=== PATIENT | male | born 1945 | race Caucasian/White ===

== ENCOUNTER 2023-03-10 10:45 | Inpatient (IN) | payer MEDICARE, OTHER ==
[~2023-03-10] VITALS: Ht 170.2 cm; Wt 68.0 kg
[~2023-03-10 10:45] MED LIST: ATOR40TA71 PO; FERR28TA PO; LACT1CAP26 PO; LISI5TAB22 PO; METF500T3 PO; RIVA20TA PO; SOTA80TA46 PO
[2023-03-10 11:09] LABS: BASOPHILS # (AUTO) 0.1 X10'3 (0-0.2); EOSINOPHILS % (AUTO) 8.9 % (0-6); HEMATOCRIT 24.9 % (42.0-52.0); HEMOGLOBIN 8.1 g/dl (14.0-17.9); LYMPHOCYTES # (AUTO) 1.6 X10'3 (1.1-4.8); LYMPHOCYTES % (AUTO) 13.8 % (21-51); MEAN CORPUSCULAR HEMOGLOBIN 27.1 PG (27.0-31.0); MEAN CORPUSCULAR HGB CONC 32.4 g/dL (33.0-36.5); MEAN CORPUSCULAR VOLUME 83.5 FL (78-98); MEAN PLATELET VOLUME 6.6 FL (7.4-10.4); MONOCYTES # (AUTO) 0.7 X10'3 (0-0.9); MONOCYTES % (AUTO) 6.3 % (2-12); PLATELET COUNT 374 X10'3 (140-440); RED BLOOD COUNT 2.98 X10'6 (4.70-6.10); WHITE BLOOD COUNT 11.4 X10'3 (4.5-11.0)
[2023-03-10 11:23] LABS: ALANINE AMINOTRANSFERASE 22 U/L (12-78); ALBUMIN 3.3 G/DL (3.4-5.0); ALBUMIN/GLOBULIN RATIO 1.1 (1.1-1.5); ALKALINE PHOSPHATASE 47 IU/L (46-116); ANION GAP 8 (8-16); ASPARTATE AMINO TRANSFERASE 21 U/L (10-37); BILIRUBIN,TOTAL 0.3 MG/DL (0.1-1.0); BLOOD UREA NITROGEN 22 MG/DL (7-18); BUN/CREATININE RATIO 19.5 (10.0-20.0); CALCIUM 8.4 MG/DL (8.5-10.1); CHLORIDE 106 MMOL/L (99-107); CREATININE 1.13 MG/DL (0.60-1.10); GLUCOSE 154 MG/DL (70-104); LIPASE 199 U/L (73-393); POTASSIUM 4.4 MMOL/L (3.5-5.1); SODIUM 137 MMOL/L (135-145); TOTAL CARBON DIOXIDE 22.8 MMOL/L (24-32); TOTAL PROTEIN 6.3 G/DL (6.4-8.2); eGFR 63 ML/MIN
[2023-03-10] MEDS ORDERED: pantoprazole 40mg IV 80 MG in normal saline 100ml IV soln 100 ML IV ONE (11:25)
[2023-03-10] MEDS ORDERED: HYDROcodone/acetaminophen 10/325mg tab PO PRN (11:45)
[2023-03-10] MEDS ORDERED: HYDROmorphone/PF 0.2 MG/ML SYRINGE IV PRN (11:45)
[2023-03-10] MEDS ORDERED: acetaminophen 325mg tablet PO PRN ×2 (11:45)
[2023-03-10] MEDS ORDERED: mag hydrox/Alum hydrox/simeth 30ml oral suspension PO PRN (11:45)
[2023-03-10] MEDS ORDERED: potassium Cl 20 mEq SR tablet PO PRN ×2 (11:45)
[2023-03-10] MEDS ORDERED: ondansetron/PF 4mg/2ml inj IV PRN (11:45)
[2023-03-10] MEDS ORDERED: magnesium 2GM in 50ml NS 50 ML IV PRN (11:45)
[2023-03-10] MEDS ORDERED: magnesium 4gm in 100ml NS 100 ML IV PRN (11:45)
[2023-03-10] MEDS ORDERED: potassium Cl 40MEQ/1/2NS 520ml 520 ML IV PRN (11:45)
[2023-03-10] MEDS ORDERED: magnesium hydroxide 30ml (MOM) UD suspension PO PRN (11:45)
[2023-03-10] MEDS ORDERED: HYDROcodone/acetaminophen 5mg/325mg tablet PO PRN (11:45)
[2023-03-10] MEDS ORDERED: ondansetron 4mg rapidly disintigrating tab PO PRN (11:45)
[2023-03-10] MEDS ORDERED: magnesium Cl slow-release 64mg tablet PO PRN (11:45)
[2023-03-10] MEDS ORDERED: HYDROmorphone inj. 0.5 MG/0.5 ML DISP.SYRIN IV PRN (11:45)
[2023-03-10] MEDS ORDERED: acetaminophen 650mg rectal suppository RC PRN (11:45)
[2023-03-10 12:14] LABS: CLARITY,URINE CLEAR (Clear); COLOR,URINE YELLOW (Yellow); GLUCOSE, URINE NEGATIVE (Neg); KETONES,URINE NEGATIVE (Neg); LEUKOCYTE ESTERASE ,URINE NEGATIVE (Neg); NITRITES, URINE NEGATIVE (Neg); OCCULT BLOOD,URINE NEGATIVE (Neg); PH,URINE 5.5 (4.8-8.0); PROTEIN,URINE NEGATIVE (Neg); UROBILINOGEN,URINE 0.2 E.U/dL (0.2-1.0)
[2023-03-10 12:16] LABS: UA COLLECTION TYPE CLN CATCH MIDSTREAM
[2023-03-10] MEDS ORDERED: OMEP20TA43 PO (12:40)
[2023-03-10] MEDS ORDERED: MULT-1085 PO (12:40)
[2023-03-10 12:44] LABS: OCCULT BLOOD STOOL POSITIVE (Neg)
[2023-03-10] MEDS: normal saline 1000ml 1,000 ML IV SCH ×2 (13:01→21:45)
[2023-03-10] MEDS ORDERED: MESSAGE TO PHARMACY PO ONE (14:40)
[2023-03-10] MEDS ORDERED: glucagon, human recombinant 1mg kit SUBCUT PRN (14:40)
[2023-03-10] MEDS ORDERED: DEXTROSE 15 GM of carb/4 tabs (each vial/BOTTLE has 4 tablets) PO PRN ×2 (14:40)
[2023-03-10] MEDS ORDERED: dextrose 50%-water 50ml dispensing syringe IV PRN ×2 (14:40)
[2023-03-10] MEDS ORDERED: insulin Lispro (HumaLOG) vial - multi-dose SQ SCH (14:40)
[2023-03-10 15:00] VITALS: BP 114/67
[2023-03-10 15:04] LABS: APTT 26 SECONDS (22-32)
[2023-03-10] MEDS: pantoprazole 40MG/NS 100ML BAG 100 ML IV SCH ×2 (16:37→20:47)
[2023-03-10 18:57] VITALS: BP 106/60
[2023-03-10] MEDS: sotalol HCl 40mg (1/2 tablet) PO SCH (20:00)
[2023-03-10] MEDS: K and/or MAG REPLACEMENT MC SCH (20:00)
[2023-03-10 20:57] VITALS: BP 107/64
[2023-03-10] MEDS: insulin glargine (Lantus) pen - multi-dose SQ SCH (21:00)
[2023-03-10] MEDS ORDERED: temazepam 15mg capsule PO PRN (21:00)
[2023-03-10 23:25] VITALS: BP 96/50
[2023-03-11] VITALS (11 sets, daily range): BP systolic 94–116; BP diastolic 45–72
[2023-03-11] MEDS: pantoprazole 40MG/NS 100ML BAG 100 ML IV SCH ×5 (01:37→22:12)
--- NOTE | 2023-03-11 06:42 | NUR ---
Problems reprioritized. Patient report given, questions answered & plan of care reviewed with OSMAR Mera.
[2023-03-11] MEDS: K and/or MAG REPLACEMENT MC SCH ×2 (08:00→20:00)
[2023-03-11] MEDS: sotalol HCl 40mg (1/2 tablet) PO SCH ×2 (08:35→21:07)
[2023-03-11] MEDS ORDERED: normal saline 1000ml 1,000 ML IV SCH (08:50)
[2023-03-11 09:18] LABS: ALANINE AMINOTRANSFERASE 18 U/L (12-78); ALBUMIN 2.4 G/DL (3.4-5.0); ALKALINE PHOSPHATASE 38 IU/L (46-116); ANION GAP 6 (8-16); ASPARTATE AMINO TRANSFERASE 19 U/L (10-37); BASOPHILS # (AUTO) 0.1 X10'3 (0-0.2); BASOPHILS % (AUTO) 1.2 % (0-1); BILIRUBIN,TOTAL 0.5 MG/DL (0.1-1.0); BLOOD UREA NITROGEN 17 MG/DL (7-18); BUN/CREATININE RATIO 18.9 (10.0-20.0); CALCIUM 7.7 MG/DL (8.5-10.1); CHLORIDE 111 MMOL/L (99-107); EOSINOPHILS # (AUTO) 0.6 X10'3 (0-0.9); EOSINOPHILS % (AUTO) 8.7 % (0-6); GLUCOSE 93 MG/DL (70-104); LYMPHOCYTES # (AUTO) 1.4 X10'3 (1.1-4.8); LYMPHOCYTES % (AUTO) 22.6 % (21-51); MAGNESIUM 1.7 MG/DL (1.5-2.4); MEAN CORPUSCULAR HEMOGLOBIN 27.1 PG (27.0-31.0); MEAN CORPUSCULAR HGB CONC 32.4 g/dL (33.0-36.5); MEAN CORPUSCULAR VOLUME 83.6 FL (78-98); MEAN PLATELET VOLUME 6.7 FL (7.4-10.4); MONOCYTES # (AUTO) 0.5 X10'3 (0-0.9); NEUTROPHILS # (AUTO) 3.8 X10'3 (1.8-7.7); NEUTROPHILS % (AUTO) 59.5 % (42-75); PLATELET COUNT 299 X10'3 (140-440); RED BLOOD COUNT 2.33 X10'6 (4.70-6.10); RED CELL DISTRIBUTION WIDTH 14.8 % (11.5-14.5); SODIUM 141 MMOL/L (135-145); TOTAL CARBON DIOXIDE 23.6 MMOL/L (24-32); TOTAL PROTEIN 4.7 G/DL (6.4-8.2); WHITE BLOOD COUNT 6.4 X10'3 (4.5-11.0); eGFR 81 ML/MIN
[2023-03-11 09:21] LABS: HEMATOCRIT 19.4 % (42.0-52.0); HEMOGLOBIN 6.3 g/dl (14.0-17.9)
--- NOTE | 2023-03-11 09:51 | NUR ---
sent to [facility] [id number]: HH is 6.3 and 19.4. Samaria PRASAD [id number]
[2023-03-11] MEDS: normal saline 1000ml 1,000 ML IV SCH (15:07)
[2023-03-11 15:22] LABS: HEMATOCRIT 22.9 % (42.0-52.0); HEMOGLOBIN 7.4 g/dl (14.0-17.9); MEAN CORPUSCULAR HEMOGLOBIN 27.4 PG (27.0-31.0); MEAN CORPUSCULAR HGB CONC 32.4 g/dL (33.0-36.5); MEAN CORPUSCULAR VOLUME 84.5 FL (78-98); MEAN PLATELET VOLUME 6.4 FL (7.4-10.4); PLATELET COUNT 303 X10'3 (140-440); RED BLOOD COUNT 2.71 X10'6 (4.70-6.10); RED CELL DISTRIBUTION WIDTH 14.7 % (11.5-14.5); WHITE BLOOD COUNT 6.4 X10'3 (4.5-11.0)
[2023-03-11] MEDS ORDERED: fentaNYL/PF 50MCG/1 ML 2ML syringe ONE (16:51)
[2023-03-11] MEDS ORDERED: MIDAZolam 1 MG/ML 5ML VIAL ONE (16:51)
[2023-03-11] MEDS ORDERED: LIDOcaine Viscous 15ml cup ONE (16:51)
--- NOTE | 2023-03-11 18:30 | NUR ---
Patient in room PCU 3013. I have received report from Samaria PRASAD and had the opportunity to ask questions and assume patient care.
[2023-03-11] MEDS: insulin glargine (Lantus) pen - multi-dose SQ SCH (21:00)
[2023-03-12] VITALS (18 sets, daily range): BP systolic 100–131; BP diastolic 59–78
[2023-03-12] MEDS: pantoprazole 40MG/NS 100ML BAG 100 ML IV SCH ×5 (03:29→21:55)
[2023-03-12] MEDS: normal saline 1000ml 1,000 ML IV SCH ×2 (05:20→19:36)
[2023-03-12 06:19] LABS: BASOPHILS # (AUTO) 0.1 X10'3 (0-0.2); EOSINOPHILS # (AUTO) 0.5 X10'3 (0-0.9); EOSINOPHILS % (AUTO) 7.7 % (0-6); HEMOGLOBIN 7.1 g/dl (14.0-17.9); LYMPHOCYTES # (AUTO) 1.4 X10'3 (1.1-4.8); LYMPHOCYTES % (AUTO) 22.3 % (21-51); MEAN CORPUSCULAR HEMOGLOBIN 27.6 PG (27.0-31.0); MEAN CORPUSCULAR HGB CONC 32.8 g/dL (33.0-36.5); MEAN CORPUSCULAR VOLUME 84.1 FL (78-98); MEAN PLATELET VOLUME 6.7 FL (7.4-10.4); MONOCYTES # (AUTO) 0.5 X10'3 (0-0.9); MONOCYTES % (AUTO) 8.7 % (2-12); NEUTROPHILS # (AUTO) 3.8 X10'3 (1.8-7.7); NEUTROPHILS % (AUTO) 60.3 % (42-75); PLATELET COUNT 318 X10'3 (140-440); RED BLOOD COUNT 2.58 X10'6 (4.70-6.10); RED CELL DISTRIBUTION WIDTH 14.7 % (11.5-14.5); WHITE BLOOD COUNT 6.3 X10'3 (4.5-11.0)
[2023-03-12 06:31] LABS: HEMATOCRIT 21.7 % (42.0-52.0)
[2023-03-12 06:39] LABS: ALANINE AMINOTRANSFERASE 14 U/L (12-78); ALBUMIN 2.3 G/DL (3.4-5.0); ALKALINE PHOSPHATASE 42 IU/L (46-116); ANION GAP 8 (8-16); ASPARTATE AMINO TRANSFERASE 17 U/L (10-37); BILIRUBIN,TOTAL 0.6 MG/DL (0.1-1.0); BLOOD UREA NITROGEN 12 MG/DL (7-18); BUN/CREATININE RATIO 12.8 (10.0-20.0); CALCIUM 7.8 MG/DL (8.5-10.1); CHLORIDE 111 MMOL/L (99-107); CREATININE 0.94 MG/DL (0.60-1.10); GLUCOSE 77 MG/DL (70-104); MAGNESIUM 1.7 MG/DL (1.5-2.4); POTASSIUM 3.7 MMOL/L (3.5-5.1); SODIUM 141 MMOL/L (135-145); TOTAL CARBON DIOXIDE 22.5 MMOL/L (24-32); TOTAL PROTEIN 4.7 G/DL (6.4-8.2); eGFR 77 ML/MIN
--- NOTE | 2023-03-12 07:04 | NUR ---
Patient in room PCU 3013. I have received report from Amaris PRASAD and had the opportunity to ask questions and assume patient care.
--- NOTE | 2023-03-12 07:11 | NUR ---
Problems reprioritized. Patient report given, questions answered & plan of care reviewed with Maya MANNING.
--- NOTE | 2023-03-12 07:33 | NUR ---
PAGER ID: [phone] MESSAGE: [id number]-Rob Jimenez-Critical HCT-21.7-Maya FORKLIFT OPERATOR [phone]
[2023-03-12] MEDS: K and/or MAG REPLACEMENT MC SCH ×2 (08:00→20:00)
[2023-03-12] MEDS: sotalol HCl 40mg (1/2 tablet) PO SCH ×2 (08:05→21:55)
[2023-03-12] MEDS ORDERED: LIDOcaine Viscous 15ml cup ONE (12:49)
[2023-03-12] MEDS ORDERED: MIDAZolam 1 MG/ML 5ML VIAL ONE (12:49)
[2023-03-12] MEDS ORDERED: fentaNYL/PF 50MCG/1 ML 2ML syringe ONE (12:49)
[2023-03-12 17:07] LABS: BASOPHILS # (AUTO) 0.1 X10'3 (0-0.2); BASOPHILS % (AUTO) 0.9 % (0-1); EOSINOPHILS # (AUTO) 0.3 X10'3 (0-0.9); EOSINOPHILS % (AUTO) 4.6 % (0-6); HEMATOCRIT 27.5 % (42.0-52.0); HEMOGLOBIN 8.9 g/dl (14.0-17.9); LYMPHOCYTES # (AUTO) 1.5 X10'3 (1.1-4.8); LYMPHOCYTES % (AUTO) 22.4 % (21-51); MEAN CORPUSCULAR HEMOGLOBIN 27.3 PG (27.0-31.0); MEAN CORPUSCULAR HGB CONC 32.3 g/dL (33.0-36.5); MEAN CORPUSCULAR VOLUME 84.3 FL (78-98); MEAN PLATELET VOLUME 6.7 FL (7.4-10.4); MONOCYTES # (AUTO) 0.6 X10'3 (0-0.9); MONOCYTES % (AUTO) 8.7 % (2-12); NEUTROPHILS # (AUTO) 4.3 X10'3 (1.8-7.7); NEUTROPHILS % (AUTO) 63.4 % (42-75); PLATELET COUNT 305 X10'3 (140-440); RED BLOOD COUNT 3.27 X10'6 (4.70-6.10); RED CELL DISTRIBUTION WIDTH 15.9 % (11.5-14.5); WHITE BLOOD COUNT 6.8 X10'3 (4.5-11.0)
--- NOTE | 2023-03-12 18:28 | NUR ---
Problems reprioritized. Patient report given, questions answered & plan of care reviewed with Aviva PRASAD.
--- NOTE | 2023-03-12 18:38 | NUR ---
PAGER ID: [phone] MESSAGE: [id number] Rob Jimenez tested positive for MRSA nasal swab Maya BOILER OUT [phone]
[2023-03-12] MEDS: insulin glargine (Lantus) pen - multi-dose SQ SCH (21:00)
[2023-03-12] MEDS: diatr meglu/diatrizoate 30ml oral sol.-(3 dose) bottle PO SCH (21:57)
[2023-03-13] MEDS: pantoprazole 40MG/NS 100ML BAG 100 ML IV SCH ×2 (01:39→07:55)
[2023-03-13 02:00] VITALS: BP 107/64
[2023-03-13 06:00] VITALS: BP 115/75
--- NOTE | 2023-03-13 06:25 | NUR ---
Patient in room PCU 3013. I have received report from OSMAR Martines and had the opportunity to ask questions and assume patient care.
--- NOTE | 2023-03-13 06:30 | NUR ---
GAVE REPORT TO GRETA RN.
[2023-03-13 07:04] LABS: BASOPHILS # (AUTO) 0.1 X10'3 (0-0.2); EOSINOPHILS # (AUTO) 0.4 X10'3 (0-0.9); EOSINOPHILS % (AUTO) 6.8 % (0-6); HEMATOCRIT 27.3 % (42.0-52.0); LYMPHOCYTES # (AUTO) 1.2 X10'3 (1.1-4.8); LYMPHOCYTES % (AUTO) 17.9 % (21-51); MEAN CORPUSCULAR HEMOGLOBIN 27.2 PG (27.0-31.0); MEAN CORPUSCULAR VOLUME 82.3 FL (78-98); MEAN PLATELET VOLUME 6.7 FL (7.4-10.4); MONOCYTES # (AUTO) 0.6 X10'3 (0-0.9); MONOCYTES % (AUTO) 9.7 % (2-12); NEUTROPHILS # (AUTO) 4.3 X10'3 (1.8-7.7); NEUTROPHILS % (AUTO) 64.6 % (42-75); PLATELET COUNT 329 X10'3 (140-440); RED BLOOD COUNT 3.32 X10'6 (4.70-6.10); RED CELL DISTRIBUTION WIDTH 15.7 % (11.5-14.5); WHITE BLOOD COUNT 6.6 X10'3 (4.5-11.0)
[2023-03-13] MEDS: diatr meglu/diatrizoate 30ml oral sol.-(3 dose) bottle PO SCH ×2 (07:47→11:01)
[2023-03-13] MEDS: sotalol HCl 40mg (1/2 tablet) PO SCH (07:47)
[2023-03-13 07:51] LABS: ALANINE AMINOTRANSFERASE 16 U/L (12-78); ALBUMIN 2.5 G/DL (3.4-5.0); ALKALINE PHOSPHATASE 48 IU/L (46-116); ANION GAP 9 (8-16); ASPARTATE AMINO TRANSFERASE 22 U/L (10-37); BILIRUBIN,TOTAL 0.7 MG/DL (0.1-1.0); BLOOD UREA NITROGEN 8 MG/DL (7-18); BUN/CREATININE RATIO 8.2 (10.0-20.0); CALCIUM 7.9 MG/DL (8.5-10.1); CHLORIDE 111 MMOL/L (99-107); CREATININE 0.97 MG/DL (0.60-1.10); GLUCOSE 103 MG/DL (70-104); MAGNESIUM 1.7 MG/DL (1.5-2.4); POTASSIUM 3.8 MMOL/L (3.5-5.1); SODIUM 143 MMOL/L (135-145); eGFR 75 ML/MIN
[2023-03-13] MEDS: K and/or MAG REPLACEMENT MC SCH (08:00)
[2023-03-13] MEDS: normal saline 1000ml 1,000 ML IV SCH (09:54)
[2023-03-13 11:00] VITALS: BP 109/73
[2023-03-13] MEDS ORDERED: iohexol 300mg/ml 100ml inj. ONE (11:15)
[2023-03-13 15:00] VITALS: BP 115/67
--- NOTE | 2023-03-13 18:20 | NUR ---
Problems reprioritized. Patient report given, questions answered & plan of care reviewed with OSMAR Martines.
--- NOTE | 2023-03-13 18:38 | NUR ---
PAGER ID: [phone] MESSAGE: Jacinto Jimenez [id number] Daughter here and upset. Pt. and family eager for him to go home. CT done at 11 no update since then. Paged radiologist. Can you discuss CT and discharge pt. tonight please? Bobbi 2402 Hospitalist replied by phone. Will discharge pt. and he needs to f/u at PCP for CT results.
[2023-03-13] MEDS ORDERED: PANT40TA54 PO (18:45)
[2023-03-13] MEDS ORDERED: pantoprazole 40mg Tablet.DR PO SCH (20:00)
--- NOTE | 2023-03-13 20:04 | NUR ---
DISCHARGE NOTE: Reviewed discharge paperwork with pt. and pt's family/daughter with pt. permission. Pt. and family had the opportunity to ask questions. Aware to hold Xarelto and to hold Metformin for 2 days. Will continue diet as tolerated and activity as tolerated. Will contact his PCP for update first thing Wednesday morning. Daughter wants to call hospital first thing in the AM for CT results. Pt. pleased he is going home today however. No tele monitor on. Pt's PIV DC"d, cannula intact, no s/sx bleeding noted, pressure bandage applied, pt. aware to remove later. Pt's family will picker and packer Protonix prescription in [place] tomorrow. Pt. and family gathered all belongings, and pt. was escorted in a w/c by a staff member downstairs to discharge home in his family's private vehicle. Addendum: 03/13/23 at 2008 by Bobbi Mtz RN Also discussed h1ac with pt. Pt. advice to monitor BG, monitor for s/sx hypoglycemia, and to discuss metformin usage with his PCP.
[2023-03-15 13:26] LABS: AFP,SERUM, TUMOR MARKER 2.7 ng/mL (0.0-8.4); CANCER ANTIGEN 125 6.1 U/mL (Not Estab.); CARCINOEMBRYONIC ANTIGEN 1.1 ng/mL (0.0-4.7); PSA, FREE <0.02 ng/mL
== END 2023-03-13 20:15 | disposition home or self-care (01) | DRG 375 ==
LOC: ER 10:45 → ED HOLD 11:48 → PCU 3S 14:53
PROVIDERS: ADMIT Family Medicine; ATTEND Family Medicine
PROC: 30233N1 Transfusion of Nonautologous Red Blood Cells into Peripheral Vein, Percutaneous Approach (ICD-10-PCS; principal; 2023-03-11)
PROC: BW251ZZ Computerized Tomography (CT Scan) of Chest, Abdomen and Pelvis using Low Osmolar Contrast (ICD-10-PCS; 2023-03-13)
DX: C16.3 Malignant neoplasm of pyloric antrum (principal); D62 Acute posthemorrhagic anemia; N17.9 Acute kidney failure, unspecified; E11.9 Type 2 diabetes mellitus without complications; K31.9 Disease of stomach and duodenum, unspecified; R19.4 Change in bowel habit; E78.00 Pure hypercholesterolemia, unspecified; R63.4 Abnormal weight loss; I48.91 Unspecified atrial fibrillation; Z79.84 Long term (current) use of oral hypoglycemic drugs; Z85.46 Personal history of malignant neoplasm of prostate; Z90.49 Acquired absence of other specified parts of digestive tract; Z95.0 Presence of cardiac pacemaker; Z68.23 Body mass index [BMI] 23.0-23.9, adult; Z88.8 Allergy status to other drugs, medicaments and biological substances; Z79.899 Other long term (current) drug therapy
CPT/HCPCS: 36415; 36430; 43239; 71045; 71260; 74177; 80053; 81003; 82103; 82272; 82378; 82948; 83036; 83690; 83735; 84153; 84154; 85025; 85027; 85384; 85610; 85730; 86301; 86304; 86885; 86900; 86901; 86920; 87081; 93005; 99152; 99285; A4620; A6449; C9113; G0378; J1815; J2250; J3010; J3490; J7030; J7040; P9016; Q9963; Q9967

== ENCOUNTER 2023-03-14 02:23 | Emergency (ER) | payer MEDICARE, OTHER ==
[~2023-03-14] VITALS: Ht 170.2 cm; Wt 65.9 kg
[~2023-03-14 02:23] MED LIST changes: -FERR28TA PO; -LACT1CAP26 PO; -LISI5TAB22 PO; +MULT-1085 PO; +PANT40TA54 PO; -RIVA20TA PO
[2023-03-14 03:35] LABS: BASOPHILS # (AUTO) 0.1 X10'3 (0-0.2); EOSINOPHILS # (AUTO) 0.6 X10'3 (0-0.9); EOSINOPHILS % (AUTO) 7.8 % (0-6); HEMATOCRIT 28.5 % (42.0-52.0); HEMOGLOBIN 9.4 g/dl (14.0-17.9); LYMPHOCYTES # (AUTO) 1.5 X10'3 (1.1-4.8); LYMPHOCYTES % (AUTO) 18.3 % (21-51); MEAN CORPUSCULAR HEMOGLOBIN 27.1 PG (27.0-31.0); MEAN CORPUSCULAR VOLUME 82.2 FL (78-98); MEAN PLATELET VOLUME 6.7 FL (7.4-10.4); MONOCYTES # (AUTO) 0.8 X10'3 (0-0.9); MONOCYTES % (AUTO) 9.5 % (2-12); NEUTROPHILS # (AUTO) 5.1 X10'3 (1.8-7.7); NEUTROPHILS % (AUTO) 63.4 % (42-75); PLATELET COUNT 315 X10'3 (140-440); RED BLOOD COUNT 3.46 X10'6 (4.70-6.10); RED CELL DISTRIBUTION WIDTH 16.2 % (11.5-14.5)
[2023-03-14 03:51] LABS: ALANINE AMINOTRANSFERASE 14 U/L (12-78); ALBUMIN 2.9 G/DL (3.4-5.0); ALBUMIN/GLOBULIN RATIO 1.1 (1.1-1.5); ALKALINE PHOSPHATASE 55 IU/L (46-116); ANION GAP 9 (8-16); ASPARTATE AMINO TRANSFERASE 21 U/L (10-37); BILIRUBIN,TOTAL 0.5 MG/DL (0.1-1.0); BLOOD UREA NITROGEN 7 MG/DL (7-18); BUN/CREATININE RATIO 6.3 (10.0-20.0); CALCIUM 8.7 MG/DL (8.5-10.1); CHLORIDE 108 MMOL/L (99-107); CREATININE 1.11 MG/DL (0.60-1.10); GLUCOSE 161 MG/DL (70-104); POTASSIUM 3.6 MMOL/L (3.5-5.1); SODIUM 141 MMOL/L (135-145); TOTAL PROTEIN 5.6 G/DL (6.4-8.2); eGFR 64 ML/MIN
[2023-03-14 04:13] LABS: CLARITY,URINE CLEAR (Clear); COLOR,URINE YELLOW (Yellow); GLUCOSE, URINE NEGATIVE (Neg); KETONES,URINE NEGATIVE (Neg); LEUKOCYTE ESTERASE ,URINE NEGATIVE (Neg); NITRITES, URINE NEGATIVE (Neg); OCCULT BLOOD,URINE NEGATIVE (Neg); PROTEIN,URINE NEGATIVE (Neg); UROBILINOGEN,URINE 0.2 E.U/dL (0.2-1.0)
[2023-03-14 04:19] LABS: UA COLLECTION TYPE VOIDED
[2023-03-14 05:03] VITALS: BP 96/71
== END 2023-03-14 05:04 | disposition home or self-care (01) ==
LOC: ER 02:24
DX: R53.1 Weakness (principal); D64.9 Anemia, unspecified; I51.9 Heart disease, unspecified; E78.00 Pure hypercholesterolemia, unspecified; E11.9 Type 2 diabetes mellitus without complications; Z90.49 Acquired absence of other specified parts of digestive tract; Z88.1 Allergy status to other antibiotic agents; Z79.899 Other long term (current) drug therapy
CPT/HCPCS: 36415; 71045; 80053; 81003; 83880; 84484; 85025; 93005; 99285